=== PATIENT | male | born 1970 | race Caucasian/White ===

== ENCOUNTER 2017-05-24 17:01 | Emergency (ER) | payer SELFPAY ==
[2017-05-24 17:02] VITALS: BP 135/83; PULSE 70; RESP 20; TEMP 36.9; O2SAT 100; BMI 19.3
--- NOTE | 2017-05-24 17:29 | XR_ITS ---
XR chest portable COMPARISON: None HISTORY: Chest pain TECHNIQUE: Portable upright chest FINDINGS: The lung panda are well expanded and appear clear of infiltrate. There is minimal apical pleural-parenchymal scarring bilaterally more prominent right side the left. Cardiac size is normal and the vascularity is normal and there is no pleural fluid. IMPRESSION: Nonacute chest findings
[2017-05-24 17:45] LABS: Basophils % 0.1 % (0.1-2.0); Eosinophils # 0.1 K/mm3 (0.0-0.4); Eosinophils % 1.4 % (0.1-12.0); Hematocrit 47.4 % (42.0-52.0); Hemoglobin 15.6 g/dL (14.1-18.0); Lymphocytes # 1.5 K/mm3 (0.7-4.5); Lymphocytes % 28.4 K/mm3 (10-50); Mean Corpuscular HGB Conc 32.8 g/dL (31.8-35.4); Mean Corpuscular Hemoglobin 31.3 pg (27.0-31.2); Mean Corpuscular Volume 95.4 fl (80-94); Mean Platelet Volume 8.8 fl (7.4-10.4); Monocytes # 0.4 K/mm3 (0.1-1.0); Monocytes % 8.5 % (1.7-9.3); Neutrophils # 3.2 K/mm3 (1.8-7.8); Neutrophils % 61.6 % (37.0-80.0); Platelet Count 219 K/mm3 (142-424); Red Blood Count 4.97 M/mm3 (4.60-6.20); Red Cell Distribution Width 12.5 % (11.5-17.5); White Blood Count 5.2 K/mm3 (4.8-10.8)
[2017-05-24 18:13] LABS: Alanine Aminotransferase 25 U/L (12-78); Albumin Level 4.2 gm/dL (3.4-5.0); Albumin/Globulin Ratio 1.2 (1.1-1.8); Alkaline Phosphatase 81 U/L (46-116); Aspartate Amino Transferase 17 U/L (15-37); Bilirubin,Total 0.3 mg/dL (0.2-1.0); Blood Urea Nitrogen 22 mg/dL (7-18); Calcium 8.9 mg/dL (8.5-10.1); Carbon Dioxide 28 mmol/L (21.0-32.0); Chloride 104 mmol/L (98-107); Creatine Kinase 67 U/L (39-308); Creatinine Clearance Estimated 84 mL/min (0-300); Creatinine,Serum 1.11 mg/dL (0.70-1.30); Estimated Glomerular Filt Rate 72 ml/min (>60); GFR (African American) 87 ML/MIN (>60); Globulin 3.6 gm/dl (1.3-3.2); Glucose 96 mg/dL (74-106); Sodium 139 mmol/L (136-145); Total Protein,Serum 7.8 gm/dL (6.4-8.2); Troponin I < 0.02 ng/ml (0.00-0.06)
[2017-05-24 18:18] LABS: CKMB Relative Index 0.7 U/L (0-4.0); Creatine Kinase MB < 0.5 ng/ml (0.0-3.6)
--- NOTE | 2017-05-24 19:07 | HMH.EDARPALP ---
ED Disposition Clinical Impression: Palpitations Disposition: Home, Self-Care Condition on Discharge: Good Instructions: DI for Palpitations Additional Instructions: Please return the Holter monitor per instructions, after 48 hours, and subsequently follow-up with the building certifier, Dr. Len Philippe (in 4-5 days). Referrals: Ashwini Gómez MD [Primary Care Provider] - Kwabena Philippe MD [Staff Physician] - Time of Disposition: 19:08 - Critical Care Critical Care Time: No Attestation: On 05/24/17, the high probability of a clinically significant, sudden or life threatening deterioration of the following system(s) required my full and direct attention, intervention and personal management. The time I documented below is in addition to time spent performing reported procedures but includes the following listed in this critical care notation. Medical Decision Making - Medical Records Medical records reviewed: Yes: I reviewed the patient's medical records. - Max Inquiry Pt receiving controlled substance: No Vital Signs: 05/24/17 17:02 05/24/17 19:42 Temperature 98.4 F 98.1 F Temperature Source Oral Pulse Rate 82 Pulse Rate [Right Radial] 70 Respiratory Rate 20 16 Blood Pressure 145/87 Blood Pressure [Right Arm] 135/83 Blood Pressure Mean [Right Arm] 100 Blood Pressure Source Automatic Cuff Blood Pressure Source [Right Arm] Automatic Cuff Blood Pressure Position Sitting Blood Pressure Position [Right Arm] Sitting 02 Sat by Pulse Oximetry 100 Oxygen Delivery Method Room Air Room Air - Lab Data Lab results reviewed: Yes: I reviewed the patient's lab results. Lab Results 05/24/17 17:20: WBC 5.2, RBC 4.97, Hgb 15.6, Hct 47.4, MCV 95.4 H, MCH 31.3 H, MCHC 32.8, RDW 12.5, Plt Count 219, MPV 8.8, Neut % (Auto) 61.6, Lymph % (Auto) 28.4, [place] % (Auto) 8.5, Eos % (Auto) 1.4, Baso % (Auto) 0.1, Neut # (Auto) 3.2, Lymph # (Auto) 1.5, [place] # (Auto) 0.4, Eos # (Auto) 0.1, Baso # (Auto) 0.0 05/24/17 17:20: Sodium 139, Potassium 4.0, Chloride 104, Carbon Dioxide 28, Anion Gap 11.0, BUN 22 H, Creatinine 1.11, Estimated Creat Clear 84, Estimated GFR 72, Est GFR ( Amer) 87, Glucose 96, Calcium 8.9, Total Bilirubin 0.3, AST 17, ALT 25, Alkaline Phosphatase 81, Total Creatine Kinase 67, CK-MB (CK-2) < 0.5, CK-MB (CK-2) Rel Index 0.7, Troponin I < 0.02, Total Protein 7.8, Albumin 4.2, Globulin 3.6 H, Albumin/Globulin Ratio 1.2 Result diagrams: 05/24/17 17:20 05/24/17 17:20 Orders (Tests/Meds): ORDERS Category Date Time Status 12-lead EKG Request [ECG Request by /Tasha] Stat Y 05/24/17 17:28 Stop Req Holter Monitor Req by Tasha/ Routine Y 05/24/17 19:03 Ordered - Radiology Data #1 Image(s): Chest Image Reviewed: Yes I reviewed the patient's radiology results, Yes I reviewed the patient's radiology image, Yes I have reviewed radiologist's interpretation Preliminary Findings: Normal/NAD - ECG Data Tracing #1 I reviewed this ECG and interpreted as documented below: ECG normal with no acute: arrhythmias, ischemia, conduction abnormalities, chamber hypertrophy Normal Sinus Rhythm: Yes - Reevaluation(s) Time: 19:05 Reevaluation #1: Patient's equipment monitor phototypesetting remained in normal sinus rhythm for the duration of his ER evaluation. He is medically stable, no acute distress, voicing no complaints. Patient will be discharged home with a 48 hours Holter monitor, and he will be instructed to follow-up with a building certifier, Dr. Philippe, within the next few days, per discharge instructions. Arrhythmia/Palpitations HPI - General Chief Complaint: Arrhythmia/Palpitations Stated Complaint: Heart Fluttering Time Seen by Provider: 05/24/17 18:20 Mode of Arrival: Ambulatory Source of Information: Patient, Relative Limitations: No Limitations - History of Present Illness HPI narrative: Patient is a lab director, who presents here with palpitations, off-and-on, for the past 24
[2017-05-24 19:42] VITALS: BP 145/87; PULSE 82; RESP 16; TEMP 36.7; O2SAT 98
== END 2017-05-24 19:33 | disposition home or self-care (01) ==
PROVIDERS: Emergency Provider Emergency Medicine; Family Provider Nurse Practitioner Family; PCP Family Medicine
DX: R00.2 Palpitations (principal); F17.210 Nicotine dependence, cigarettes, uncomplicated
CPT/HCPCS: 71045; 80053; 82550; 82553; 84484; 85025; 93005; 93225; 93226; 99283

== ENCOUNTER → 2017-12-17 14:54 | Outpatient (CLI) | payer SELFPAY ==
--- NOTE | 2017-12-17 14:57 | CA_ITS ---
PROCEDURE: 2-D M-mode and color Doppler study INDICATIONS FOR THE TEST: Chest pain COPD Heart Murmur Tobacco Smoking+ Palpitations+ Fatigue Syncope Edema+ Hypertension Diabetes Mellitus Rheumatic Fever SOB [place] Obesity Hyperlipidemia Family History HD Additional History abn ekg PATIENT INFORMATION HEIGHT: 71 WEIGHT:155 GENDER: Male B/P:138/84 2-D/M-MODE INTERPRETATION: 2-D MEASUREMENTS OBSERVED VALUES IN CMS Right Ventricular Dimension (RVDd) 1.5 Interventricular Septum (Thickness)(IVsd) 0.6 Left Ventricular Internal Dimensions(LVIDd) 5.1 Left Ventricular Posterior Wall (Thickness)(LVPWd) 0.6 Aortic Root 2.5 Aortic Cusp Separation 1.1 Left Atrial Dimensions (LAD) 2.1 2D 1. Left atrium is normal size, left ventricle is normal size, there is no concentric left ventricular hypertrophy, visually estimated ejection fraction of 55% with no regional wall motion abnormality. 2. The right atrium and right ventricle are normal size and contractility. 3. The aortic, mitral and tricuspid valvular grossly normal. 4. The pulmonic valve is poorly visualized. 5. No significant pericardial effusion noted. DOPPLER INTERROGATION: Doppler interrogation of the aortic, mitral and tricuspid valvular presence of trace mitral and tricuspid regurgitation of no hemodynamic significance, diastolic parameters are within normal range. CONCLUSION: 1. Normal left ventricular size, preserved left ventricular systolic function, visually estimated ejection fraction 55% with no regional wall motion abnormality, diastolic parameters are within normal range. 2. Trace mitral and tricuspid regurgitation 3. No significant pericardial effusion noted.
== END ==
PROVIDERS: PCP Family Medicine; Visit Provider Internal Medicine
DX: R00.2 Palpitations (principal); F17.200 Nicotine dependence, unspecified, uncomplicated; R20.0 Anesthesia of skin; R20.2 Paresthesia of skin; R94.31 Abnormal electrocardiogram [ECG] [EKG]
CPT/HCPCS: 93306

== ENCOUNTER → 2019-05-25 14:24 | Outpatient (CLI) | payer OTHER, SELFPAY ==
--- NOTE | 2019-05-25 14:28 | XR_ITS ---
PROCEDURE: XR CERVICAL SPINE 5V CLINICAL INDICATION: CERVICALGIA, LT ARM NUMBNESS COMPARISON: CS5 CERVICAL SPINE 4 OR 5 VIEWS from 04/02/2015 FINDINGS: There is degenerative disc disease at C6-7 with loss of disc space height and anterior marginal spurring unchanged over the interval. Neural foramina are patent. No acute fracture or dislocation is apparent. There are subpleural blebs and scarring in both lung apices right greater than left. IMPRESSION: Degenerative disc disease C6-7 Dictated by: Marv Elder 05/25/2019 15:43 Electronically signed by Marv Elder in [place] 05/25/2019 15:43
== END ==
PROVIDERS: PCP Nurse Practitioner Family; Visit Provider Nurse Practitioner Family
DX: M54.2 Cervicalgia (principal); R00.2 Palpitations
CPT/HCPCS: 72050

== ENCOUNTER → 2019-06-05 15:13 | Outpatient (CLI) | payer OTHER, SELFPAY ==
--- NOTE | 2019-06-05 15:16 | XR_ITS ---
PROCEDURE: XR CHEST 2V CLINICAL HISTORY: ABNORMAL X-RAY Smoker, follow-up abnormal radiograph COMPARISON: CXR1VP XR chest portable from 06/03/2017 CXR2V XR chest 2V from 06/04/2017 XR CHEST 2V from 05/22/2019 FINDINGS: The cardiomediastinal silhouette and pulmonary vascularity are within normal limits. There are biapical blebs with some pleural parenchymal scarring in the lung apices not significantly changed. No evidence of pneumothorax. No acute bony abnormalities. IMPRESSION: Biapical blebs. No change with no acute finding. Dictated by: Noam Calderón MD 06/05/2019 15:47 Electronically signed by Noam Calderón MD in [place] 06/05/2019 15:47
== END ==
PROVIDERS: PCP Nurse Practitioner Family; Visit Provider Nurse Practitioner Family
DX: R93.89 Abnormal findings on diagnostic imaging of other specified body structures (principal)
CPT/HCPCS: 71046

== ENCOUNTER 2019-07-12 05:43 | Emergency (ER) | payer OTHER, SELFPAY ==
[2019-07-12 05:52] VITALS: BP 145/87; PULSE 77; RESP 16; TEMP 36.4; O2SAT 99; BMI 19.9
--- NOTE | 2019-07-12 06:02 | XR_ITS ---
PROCEDURE: XR CHEST 2V CLINICAL HISTORY: strain in chest Chest pain, aching and chills COMPARISON: CXR2V XR chest 2V from 06/04/2017 XR CHEST 2V from 05/22/2019 XR CHEST 2V from 06/05/2019 FINDINGS: The cardiomediastinal silhouette and pulmonary vascularity are within normal limits. Biapical blebs are present as before. The lungs are otherwise clear. No acute bony abnormalities. IMPRESSION: No change with no acute finding. Biapical blebs Dictated by: Noam Calderón MD 07/12/2019 06:51 Electronically signed by Noam Calderón MD in [facility] 07/12/2019 06:51
--- NOTE | 2019-07-12 06:08 | ECG_ITS ---
APPROVED REPORT Exam: Resting ECG HR:67 bpm ECG Measurements Heart Rate 67 AXES WA 156 P 75 QRSd 90 QRS -28 QT 394 T 65 QTc 416 <Conclusion> Normal sinus rhythm Normal ECG Electronically signed by : Sampson Valle, 07/13/2019 21:41:44
[2019-07-12 06:12] LABS: Basophils # 0.2 K/mm3 (0-0.2); Basophils % 2.8 % (0.1-2.0); Eosinophils # 0.2 K/mm3 (0.0-0.4); Eosinophils % 2.1 % (0.1-12.0); Hematocrit 48.5 % (42.0-52.0); Hemoglobin 15.4 g/dL (14.1-18.0); Lymphocytes % 25.6 % (10-50); Mean Corpuscular HGB Conc 31.8 g/dL (31.8-35.4); Mean Corpuscular Hemoglobin 30.9 pg (27.0-31.2); Mean Corpuscular Volume 97.2 fl (80-94); Mean Platelet Volume 9.2 fl (7.4-10.4); Monocytes # 0.8 K/mm3 (0.1-1.0); Monocytes % 10.3 % (1.7-9.3); Neutrophils # 4.6 K/mm3 (1.8-7.8); Neutrophils % 59.2 % (37.0-80.0); Platelet Count 216 K/mm3 (142-424); Red Blood Count 4.99 M/mm3 (4.60-6.20); Red Cell Distribution Width 13.3 % (11.5-17.5); White Blood Count 7.7 K/mm3 (4.8-10.8)
[2019-07-12 06:13] LABS: Chloride 103 mmol/L (98-107); Sodium 137 mmol/L (136-145)
[2019-07-12 06:16] LABS: Alanine Aminotransferase 23 U/L (12-78); Albumin Level 4.8 g/dl (3.5-5.0); Albumin/Globulin Ratio 1.4 (1.1-1.8); Alkaline Phosphatase 93 U/L (38-126); Amylase 80 U/L (30-110); Aspartate Amino Transferase 39 U/L (17-59); Bilirubin,Total 0.7 mg/dl (0.2-1.3); Blood Urea Nitrogen 24 mg/dl (9-20); Calcium 10.3 mg/dl (8.4-10.2); Carbon Dioxide 29 mmol/L (22.0-30.0); Creatinine Clearance Estimated 91 mL/min (50-200); Estimated Glomerular Filt Rate 80 ml/min (>60); GFR (African American) 97 ML/MIN (>60); Globulin 3.4 g/dL (1.3-3.2); Glucose 112 mg/dl (74-100); Total Protein,Serum 8.2 g/dl (6.3-8.2)
[2019-07-12 06:17] LABS: Lipase 86 U/L (23-300)
[2019-07-12 06:18] LABS: Microscopic, Urine URINE MICROSCOPIC (MICROSCOPIC)
[2019-07-12 06:19] LABS: Strep Scrn Group A (Rapid) Negative (Negative)
[2019-07-12 06:20] LABS: Appearance,Urine CLEAR (Clear); Bilirubin,Urine Negative (Negative); Blood, Urine Negative (Negative); Color,Urine YELLOW (Yellow); Glucose,Urine (UA) Negative (Negative); Ketones,Urine Negative (Negative); Leukocyte Esterase,Urine Negative (Negative); Nitrate,Urine Negative (Negative); Protein,Urine Negative (Negative); Urobilinogen,Urine 0.2 EU/dl (0.2)
[2019-07-12 06:29] LABS: Troponin I < 0.01 ng/ml (0.00-0.034)
[2019-07-12 06:31] LABS: Squamous Epithelial Cell,Urine Occasional #/hpf (0-5); WBC,Urine Occasional #/hpf (0-3)
--- NOTE | 2019-07-12 06:39 | HMH.EDNVD ---
ED Disposition Clinical Impression: Vomiting Qualifiers: Vomiting type: unspecified Vomiting Intractability: unspecified Nausea presence: with nausea Qualified Code(s): R11.2 - Nausea with vomiting, unspecified Disposition: Home, Self-Care Condition on Discharge: Good Instructions: DI for Nausea -- Adult Additional Instructions: fluids and call pcp for follow up Prescriptions: ondansetron HCL [Zofran 4mg Tab] 4 mg PO QID #20 tab Transmission Status: Pending to [id number] Referrals: Ashwini Gómez MD [Primary Care Provider] - - Critical Care Critical Care Time: No Attestation: On 07/12/19, the high probability of a clinically significant, sudden or life threatening deterioration of the following system(s) required my full and direct attention, intervention and personal management. The time I documented below is in addition to time spent performing reported procedures but includes the following listed in this critical care notation. Medical Decision Making - Medical Records Medical records reviewed: Yes: I reviewed the patient's medical records. - Max Inquiry Pt receiving controlled substance: No Vital Signs: 07/12/19 05:52 Temperature 97.6 F Temperature Source Oral Pulse Rate [Right Brachial] 77 Respiratory Rate 16 Blood Pressure [Right Arm] 145/87 H Blood Pressure Mean [Right Arm] 106 Blood Pressure Source [Right Arm] Automatic Cuff Blood Pressure Position [Right Arm] Sitting 02 Sat by Pulse Oximetry 99 Oxygen Delivery Method Room Air - Lab Data Lab results reviewed: Yes: I reviewed the patient's lab results. Lab Results 07/12/19 06:00: WBC 7.7, RBC 4.99, Hgb 15.4, Hct 48.5, MCV 97.2 H, MCH 30.9, MCHC 31.8, RDW 13.3, Plt Count 216, MPV 9.2, Neut % (Auto) 59.2, Lymph % (Auto) 25.6, [place] % (Auto) 10.3 H, Eos % (Auto) 2.1, Baso % (Auto) 2.8 H, Neut # (Auto) 4.6, Lymph # (Auto) 2.0, [place] # (Auto) 0.8, Eos # (Auto) 0.2, Baso # (Auto) 0.2 07/12/19 06:00: Sodium 137, Potassium 4.0, Chloride 103, Carbon Dioxide 29, Anion Gap 9.0, BUN 24 H, Creatinine 1.00, Estimated Creat Clear 91, Estimated GFR 80, Est GFR ( Amer) 97, Glucose 112 H, Calcium 10.3 H, Total Bilirubin 0.7, AST 39, ALT 23, Alkaline Phosphatase 93, Total Protein 8.2, Albumin 4.8, Globulin 3.4 H, Albumin/Globulin Ratio 1.4, Amylase 80 07/12/19 06:00: Troponin I < 0.01, Lipase 86 07/12/19 06:03: Influenza Type A Ag Negative, Influenza Type B Ag Negative 07/12/19 06:03: Group A Strep Rapid Negative 07/12/19 06:13: Urine Color Yellow, Urine Appearance Clear, Urine pH 7.0, Ur Specific [place] 1.020, Urine Protein Negative, Urine Glucose (UA) Negative, Urine Ketones Negative, Urine Blood Negative, Urine Nitrate Negative, Urine Bilirubin Negative, Urine Urobilinogen 0.2, Ur Leukocyte Esterase Negative, Urine RBC 3-5, Urine WBC Occasional, Ur Squamous Epith Cells Occasional, Urine Bacteria None Result diagrams: 07/12/19 06:00 07/12/19 06:00 Orders (Tests/Meds): ED MEDICATIONS Generic Name Dose Route Start Last Admin Trade Name Freq PRN Reason Stop Dose Admin Sodium Chloride 1,000 mls @ 999 mls/hr 07/12/19 06:00 07/12/19 06:01 Sod Chlor 0.9% 1000ml Bag IV 07/12/19 07:00 999 mls/hr .Q1H1M KEVIN Administration Discontinued Medications Generic Name Dose Route Start Last Admin Trade Name Freq PRN Reason Stop Dose Admin Ondansetron HCl 4 mg 07/12/19 05:58 07/12/19 06:01 Zofran 4mg/2ml Vial IV 07/12/19 05:59 4 mg ONCE ONE Administration ORDERS Category Date Time Status XR chest 2V Stat Exams 07/12/19 06:02 Taken Troponin I Q3H Lab 07/12/19 09:15 Ordered Troponin I Q3H Lab 07/12/19 12:15 Ordered Strep Screen Confirmation Stat Micro 07/12/19 06:03 Received - Radiology Data #1 Image(s): Chest Image Reviewed: Yes I reviewed the patient's radiology image Preliminary Findings: Normal/NAD - ECG Data Tracing #1 Normal Sinus Rhythm: Yes Ischemic changes: non-specific ST-T wave jackie
[2019-07-12 06:50] VITALS: BP 145/87; PULSE 77; RESP 16; TEMP 36.4; O2SAT 99
== END 2019-07-12 06:55 | disposition home or self-care (01) ==
PROVIDERS: Emergency Provider Emergency Medicine; PCP Family Medicine
DX: R11.2 Nausea with vomiting, unspecified (principal); F17.210 Nicotine dependence, cigarettes, uncomplicated
CPT/HCPCS: 71046; 80053; 81001; 82150; 83690; 84484; 85025; 87275; 87276; 87430; 93005; 96365; 96375; 99284; J2405

== ENCOUNTER 2019-09-18 02:20 | Emergency (ER) | payer OTHER, SELFPAY ==
[2019-09-18] VITALS (8 sets, daily range): BP systolic 99–140; BP diastolic 58–82; PULSE 50–88; RESP 15–18; TEMP 36.5; O2SAT 96–99; BMI 22.5
--- NOTE | 2019-09-18 02:26 | ECG_ITS ---
APPROVED REPORT Exam: Resting ECG HR:75 bpm ECG Measurements Heart Rate 75 AXES MD 148 P 79 QRSd 90 QRS -46 QT 366 T 74 QTc 408 <Conclusion> Normal sinus rhythm Left anterior fascicular block Abnormal ECG Electronically signed by : Aakash Krishna, 09/18/2019 15:13:42
--- NOTE | 2019-09-18 02:27 | XR_ITS ---
PROCEDURE: XR CHEST 2V CLINICAL HISTORY: chest pain Left-sided chest pain radiating down left arm. Smoker. No history of surgeries or carcinoma. COMPARISON: 07/12/2019 and 06/05/2019. FINDINGS: The cardiomediastinal silhouette and pulmonary vascularity are within normal limits. The lungs are hyperinflated, compatible with COPD. There is biapical pleural parenchymal scarring. Lung panda are unremarkable for acute infiltrative or congestive changes. Bilateral perihilar chronic appearing mildly increased interstitial markings demonstrated more prominently in the basilar regions. Mediastinum and hilar soft tissues are unremarkable. No acute bony abnormalities. IMPRESSION: No acute findings. Stable appearing chest. COPD changes. Redemonstrated biapical pleural parenchymal thickening and scarring. Dictated by: Sangeeta Mendez 09/18/2019 08:46 Electronically signed by Sangeeta Mendez in [place] 09/18/2019 08:46
[2019-09-18 02:37] LABS: Basophils % 0.2 % (0.1-2.0); Eosinophils # 0.1 K/mm3 (0.0-0.4); Eosinophils % 1.4 % (0.1-12.0); Hematocrit 48.1 % (42.0-52.0); Hemoglobin 16.2 g/dL (14.1-18.0); Lymphocytes # 2.2 K/mm3 (0.7-4.5); Mean Corpuscular HGB Conc 33.8 g/dL (31.8-35.4); Mean Corpuscular Hemoglobin 31.9 pg (27.0-31.2); Mean Corpuscular Volume 94.5 fl (80-94); Mean Platelet Volume 9.2 fl (7.4-10.4); Monocytes # 0.6 K/mm3 (0.1-1.0); Monocytes % 6.8 % (1.7-9.3); Neutrophils # 6.1 K/mm3 (1.8-7.8); Neutrophils % 67.6 % (37.0-80.0); Platelet Count 210 K/mm3 (142-424); Red Blood Count 5.08 M/mm3 (4.60-6.20); Red Cell Distribution Width 13.4 % (11.5-17.5)
[2019-09-18 02:41] LABS: Anion Gap 13.9 mEq/L (5-15); Blood Urea Nitrogen 21 mg/dl (9-20); Calcium 10.5 mg/dl (8.4-10.2); Carbon Dioxide 31 mmol/L (22.0-30.0); Chloride 101 mmol/L (98-107); Creatinine Clearance Estimated 105 mL/min (50-200); Estimated Glomerular Filt Rate 80 ml/min (>60); GFR (African American) 97 ML/MIN (>60); Glucose 118 mg/dl (74-100); Potassium 3.9 mmoL/L (3.5-5.1); Sodium 142 mmol/L (136-145)
[2019-09-18 02:59] LABS: Troponin I < 0.01 ng/ml (0.00-0.034)
--- NOTE | 2019-09-18 03:10 | HMH.EDCP ---
ED Disposition Clinical Impression: Atypical chest pain Disposition: Home, Self-Care Condition on Discharge: Good Instructions: DI for Atypical Chest Pain Additional Instructions: see pcp and card for follow up Referrals: Suyapa Contreras APRN [Primary Care Provider] - - Critical Care Critical Care Time: No Attestation: On 09/18/19, the high probability of a clinically significant, sudden or life threatening deterioration of the following system(s) required my full and direct attention, intervention and personal management. The time I documented below is in addition to time spent performing reported procedures but includes the following listed in this critical care notation. Medical Decision Making - Medical Records Medical records reviewed: Yes: I reviewed the patient's medical records. - Max Inquiry Pt receiving controlled substance: No Vital Signs: 09/18/19 02:20 09/18/19 02:50 09/18/19 03:20 Temperature 97.7 F Temperature Source Oral Pulse Rate [Left Radial] 88 61 53 L Respiratory Rate 16 15 15 Blood Pressure [Right Arm] 140/82 103/58 L 99/59 L Blood Pressure Mean [Right Arm] 101 73 72 Blood Pressure Source [Right Arm] Automatic Cuff Automatic Cuff Blood Pressure Position [Right Arm] Sitting Sitting 02 Sat by Pulse Oximetry 96 97 96 Oxygen Delivery Method Room Air Room Air 09/18/19 03:54 09/18/19 04:30 09/18/19 05:00 Temperature Temperature Source Pulse Rate [Left Radial] 50 L 57 L 60 Respiratory Rate 15 16 18 Blood Pressure [Right Arm] 99/58 L 101/65 L 105/66 L Blood Pressure Mean [Right Arm] 71 77 79 Blood Pressure Source [Right Arm] Automatic Cuff Automatic Cuff Automatic Cuff Blood Pressure Position [Right Arm] Sitting Sitting Supine 02 Sat by Pulse Oximetry 97 96 96 Oxygen Delivery Method Room Air Room Air Room Air 09/18/19 05:30 Temperature Temperature Source Pulse Rate [Left Radial] 62 Respiratory Rate 17 Blood Pressure [Right Arm] 108/60 L Blood Pressure Mean [Right Arm] 76 Blood Pressure Source [Right Arm] Automatic Cuff Blood Pressure Position [Right Arm] Supine 02 Sat by Pulse Oximetry 98 Oxygen Delivery Method Room Air - Lab Data Lab results reviewed: Yes: I reviewed the patient's lab results. Lab Results 09/18/19 02:20: WBC 9.0, RBC 5.08, Hgb 16.2, Hct 48.1, MCV 94.5 H, MCH 31.9 H, MCHC 33.8, RDW 13.4, Plt Count 210, MPV 9.2, Neut % (Auto) 67.6, Lymph % (Auto) 24.0, [place] % (Auto) 6.8, Eos % (Auto) 1.4, Baso % (Auto) 0.2, Neut # (Auto) 6.1, Lymph # (Auto) 2.2, [place] # (Auto) 0.6, Eos # (Auto) 0.1, Baso # (Auto) 0.0 09/18/19 02:20: Sodium 142, Potassium 3.9, Chloride 101, Carbon Dioxide 31 H, Anion Gap 13.9, BUN 21 H, Creatinine 1.00, Estimated Creat Clear 105, Estimated GFR 80, Est GFR ( Amer) 97, Glucose 118 H, Calcium 10.5 H, Troponin I < 0.01 09/18/19 05:20: Troponin I < 0.01 Result diagrams: 09/18/19 02:20 09/18/19 02:20 Orders (Tests/Meds): ED MEDICATIONS Generic Name Dose Route Start Last Admin Trade Name Freq PRN Reason Stop Dose Admin Sodium Chloride 1,000 mls @ 999 mls/hr 09/18/19 02:30 09/18/19 02:28 Sod Chlor 0.9% 1000ml Bag IV 09/18/19 03:30 999 mls/hr .Q1H1M KEVIN Administration Sodium Chloride 8 ml 09/18/19 02:32 Sodium Chloride 0.9% 10ml Vial IV 10/18/19 02:31 NEEDED PRN dilute pepcid Discontinued Medications Generic Name Dose Route Start Last Admin Trade Name Freq PRN Reason Stop Dose Admin Aspirin 324 mg 09/18/19 02:26 09/18/19 02:29 Aspirin 81mg Chewable Tablet PO 09/18/19 02:27 324 mg ONCE ONE Administration Famotidine 20 mg 09/18/19 02:32 09/18/19 02:36 Pepcid 20mg/2ml Vial IV 09/18/19 02:33 20 mg ONCE ONE Administration Ketorolac Tromethamine 30 mg 09/18/19 02:26 09/18/19 02:29 Toradol 30mg/Ml Vial IV 09/18/19 02:27 30 mg ONCE ONE Administration Metoclopramide HCl 10 mg 09/18/19 02:32 09/18/19 02:36 Reglan 10mg/2ml Vial IVP 09/18/19 02
[2019-09-18 06:03] LABS: Troponin I < 0.01 ng/ml (0.00-0.034)
== END 2019-09-18 06:19 | disposition home or self-care (01) ==
PROVIDERS: Emergency Provider Emergency Medicine; PCP Nurse Practitioner Family
DX: R07.89 Other chest pain (principal); F17.210 Nicotine dependence, cigarettes, uncomplicated
CPT/HCPCS: 71046; 80048; 84484; 85025; 93005; 96365; 96374; 96375; 99284; J2405

== ENCOUNTER → 2019-10-02 14:59 | Outpatient (CLI) | payer OTHER, SELFPAY ==
--- NOTE | 2019-10-02 15:03 | MR_ITS ---
PROCEDURE: MR CERVICAL SPINE WO CON CLINICAL INDICATION: CERVICALGIA, LEFT ARM NUMBNESS LT SIDED NECK PAIN WITH NUMBNESS IN 4TH-5TH DIGITS. TINGLING AND NUMBNESS DOWN LT ARM. X6-8MONTHS. NO INJURY. PRIOR CT 08/11/2018 COMPARISON: CT SPCERVWO CT cervical spine wo con from 08/11/2018 TECHNIQUE: Standard multiplanar multiecho sequences are performed without contrast. 3-D MIP and myelographic images are also rendered and reviewed FINDINGS: The the craniocervical junction has an unremarkable appearance. C2-C3: Unremarkable. C3-C4: Unremarkable. C4-C5: Unremarkable. C5-C6: There is a small left paracentral/foraminal disc protrusion causing mild left lateral recess and foraminal narrowing. C6-C7: Degenerate disc disease with minimal bulging disc in very minimal central disc protrusion without impingement. C7-T1: Unremarkable. IMPRESSION: 1. C5-C6: There is a small left paracentral/foraminal disc protrusion causing mild left lateral recess and foraminal narrowing. 2. C6-C7: Degenerative disc disease with minimal bulging disc with very minimal central disc protrusion without impingement 3. No extruded herniated disc or canal stenosis Dictated b Noam Calderón MD 10/03/2019 11:57 Noam Calderón MD in [place] 10/03/2019 11:57
== END ==
PROVIDERS: PCP Nurse Practitioner Family; Visit Provider Nurse Practitioner Family
DX: M54.2 Cervicalgia (principal); R20.0 Anesthesia of skin
CPT/HCPCS: 72141; 76376

== ENCOUNTER → 2019-11-15 10:13 | Outpatient (CLI) | payer OTHER, SELFPAY ==
--- NOTE | 2019-11-15 10:29 | XR_ITS ---
PROCEDURE: XR ANKLE RT MIN 3V CLINICAL INDICATION: RT ANKLE AND JOINT PAIN COMPARISON: No exams were available for comparison FINDINGS: There is no soft tissue swelling. The medial and lateral malleolus appear intact. The ankle mortise is normal. IMPRESSION: No acute findings. Dictated by: Dr. Daryl Godinez MD 11/15/2019 10:45 Dr. Daryl Godinez MD in [place] 11/15/2019 10:45
== END ==
PROVIDERS: PCP Family Medicine; Visit Provider Family Medicine
DX: M25.571 Pain in right ankle and joints of right foot (principal)
CPT/HCPCS: 73610

== ENCOUNTER → 2020-01-04 13:29 | Outpatient (CLI) | payer OTHER, SELFPAY ==
--- NOTE | 2020-01-04 13:36 | XR_ITS ---
PROCEDURE: XR FOOT LT MIN 3V CLINICAL INDICATION: LT FOOT PAIN, SWELLING OF LT FOOT COMPARISON: CR FTL3 FOOT-LT-3 VIEWS from 02/03/2017 FINDINGS: No fracture or dislocation. No lytic or blastic change. There is normal mineralization. The joint spaces are well-preserved. No significant degenerative/arthritic changes. No erosive changes evident. Other findings:None. IMPRESSION: No acute findings. Dictated by: Noam Calderón MD 01/04/2020 14:00 Noam Calderón MD in [facility] 01/04/2020 14:00
== END ==
PROVIDERS: PCP Nurse Practitioner Family; Visit Provider Nurse Practitioner Family
DX: M79.672 Pain in left foot (principal); M79.89 Other specified soft tissue disorders
CPT/HCPCS: 73630

== ENCOUNTER → 2021-03-17 15:47 | Outpatient (CLI) | payer OTHER, SELFPAY | PROVIDERS: Visit Provider Nurse Practitioner | DX: Z20.822 Contact with and (suspected) exposure to COVID-19 (principal) | CPT/HCPCS: C9803; U0003; U0005 ==

== ENCOUNTER 2023-01-17 14:06 | Emergency (ER) | payer BC, SELFPAY ==
[2023-01-17] VITALS (9 sets, daily range): BP systolic 121–150; BP diastolic 65–79; PULSE 63–90; RESP 12–21; TEMP 36.6–36.7; O2SAT 96–97; BMI 20.9
--- NOTE | 2023-01-17 14:15 | PC.NURSE ---
PT PLACED IN GOWN AND C COLLAR
--- NOTE | 2023-01-17 14:50 | CT_ITS ---
PROCEDURE INFORMATION: Exam: CT Cervical Spine Without Contrast Exam date and time: 01/17/2023 3:07 PM Age: 52 years old Clinical indication: Injury or trauma; Fall; Blunt trauma; Additional info: Fall, axial load, midline pain TECHNIQUE: Imaging protocol: Computed tomography of the cervical spine without contrast. Radiation optimization: All CT scans at this facility use at least one of these dose optimization techniques: automated exposure control; mA and/or kV adjustment per patient size (includes targeted exams where dose is matched to clinical indication); or iterative reconstruction. REPORTING DATA: Count of CT and Cardiac NM exams in prior 12 months: This patient has received 0 known CTs and 0 known cardiac nuclear medicine studies in the 12 months prior to the current study. COMPARISON: MR CERVICAL SPINE WO CON 10/02/2019 3:10 PM FINDINGS: Bones/joints: Cervical spondylosis with changes of disc degeneration at C6-C7. Lungs: Lung apices are normal. Soft tissues: Unremarkable. IMPRESSION: No evidence of acute abnormality.
--- NOTE | 2023-01-17 14:51 | HMH.EDGENADL ---
Discharge Plan Disposition Patient Disposition: Home, Self-Care Prescriptions Prescriptions: New ibuprofen 600 mg tablet 600 mg PO Q8H PRN (Reason: pain) 7 Days Qty: 21 0RF cyclobenzaprine 5 mg tablet 5 mg PO TID PRN (Reason: muscle spasm) 5 Days Qty: 15 0RF No Action pantoprazole [Protonix] 40 mg tablet,delayed release (DR/EC) 40 mg PO DAILY multivitamin Tablet 1 tab PO DAILY Referrals Follow up/Referrals: Suyapa Contreras APRN [Primary Care Provider] - See instructions Clinical Impressions Clinical Impression: Cervical strain Discharge ED Provider: Valeriano Hernandez General Adult HPI <Valeriano Hernandez MD - Last Filed: 01/17/23 14:54> General Chief complaint: Fall Stated complaint: AO 01/15 landed on feet after falling 12' Time Seen by Provider: 01/17/23 14:30 Mode of Arrival: Ambulatory Source of Information: Patient Limitations: No Limitations Description of Symptoms (Recalled from ER Triage Doc. by RN): 52 yo M presents to ED c/o fall. pt reports he was climbing down out of tree stand wednesday night around sunset, he slipped with muddy boots and fell down landing on his feet. pt reports appox 12 feet. pt placed in coller, and pt placed in gown for assessment History of Present Illness HPI narrative: Patient is a 52-year-old with past medical history of previous C5/C6 fracture who presents emergency department for evaluation of traumatic injury sustained in a fall. Patient states that he was climbing out of a tree stand when he fell approximately 12 feet. When he realized he was falling he pushed himself away from the ladder and landed straight on his feet. He was wearing a heavy backpack at the time had resultant midline neck pain. Due to persistent pain he presents here for continued evaluation. Denies other traumatic injuries, chest pain, abdominal pain, extremity pain, low back pain. Related Data Home Medications Medication Instructions Recorded Confirmed multivitamin 1 tab PO DAILY . 02/20/19 02/19/20 pantoprazole 40 mg tablet,delayed 40 mg PO DAILY 02/19/20 02/19/20 release (Protonix) Previous Rx's Medication Instructions Recorded cyclobenzaprine 5 mg tablet 5 mg PO TID PRN muscle spasm 5 11/26/23 days #15 tabs ibuprofen 600 mg tablet 600 mg PO Q8H PRN pain 7 days #21 01/17/23 tabs Allergies Allergy/AdvReac Type Severity Reaction Status Date / Time prednisolone AdvReac Intermediate Vomiting Verified 02/19/20 10:51 PFSH <Valeriano Hernandez MD - Last Filed: 01/17/23 14:54> PFS Disclaimer: The information contained in this section may have been updated after the patient was seen, as this information can be updated by other users. Medical History (Updated 01/17/23 @ 17:18 by Yen Hanks MD) Abnormal EKG COPD (chronic obstructive pulmonary disease) Tobacco dependence syndrome Social History Smoking Status: Current every day smoker tobacco type: cigarettes packs per day: 1 second hand exposure: No alcohol intake: never substance use type: denies use current occupational status: employed Travel in the last 8 weeks: None housing: house current occupational exposures/hazards: No <Valeriano Hernandez MD - Last Filed: 01/17/23 14:54> ROS Obtained: Yes Systems reviewed as appropriate & no additional complaints except as documented Physical Exam <Valeriano Hernandez MD - Last Filed: 01/17/23 14:54> General General appearance: alert and in no apparent distress Head Head exam: atraumatic and normocephalic Eye Eye exam: Present PERRL and EOMI ENT ENT exam: Present mucous membranes moist Neck Neck exam: Present normal inspection and tenderness (Midline) Chest Chest inspection: Present normal inspection and symmetric chest wall rise Respiratory Respiratory exam: Present normal lung sounds bilaterally; Absent respiratory distress Cardiovascular Cardiovascular exam: Present regular rate and normal rhythm Abdominal Exam Abdominal exa
--- NOTE | 2023-01-17 17:03 | PC.NURSE ---
Janeth Luque rounded on pt, updated him we are waiting on scan results.
== END 2023-01-17 18:18 | disposition home or self-care (01) ==
PROVIDERS: Emergency Provider Emergency Medicine; PCP Nurse Practitioner Family
DX: S16.1XXA Strain of muscle, fascia and tendon at neck level, initial encounter (principal); F17.210 Nicotine dependence, cigarettes, uncomplicated; J44.9 Chronic obstructive pulmonary disease, unspecified; W14.XXXA Fall from tree, initial encounter
CPT/HCPCS: 72125; 99284

== ENCOUNTER 2024-06-20 15:09 | Outpatient (CLI) | payer BC, SELFPAY ==
[2024-06-20 15:15] LABS: Basophils % 0.1 % (0.1-2.0); Eosinophils # 0.1 Kmm3 (0.0-0.4); Hematocrit 46.5 % (42.0-52.0); Hemoglobin 15.7 g/dL (14.1-18.0); Lymphocytes # 1.3 K/mm3 (0.7-4.5); Lymphocytes % 10.4 % (10-50); Mean Corpuscular HGB Conc 33.8 g/dL (31.8-35.4); Mean Corpuscular Hemoglobin 31.2 pg (27.0-31.2); Mean Corpuscular Volume 92.4 fl (80-94); Mean Platelet Volume 11.9 fl (7.4-10.4); Monocytes # 1.6 K/mm3 (0.1-1.0); Neutrophils # 9.9 K/mm3 (1.8-7.8); Neutrophils % 76.2 % (37.0-80.0); Nucleated Red Blood Cells # 0 10^3/uL; Nucleated Red Blood Cells % 0 %; Platelet Count 238 K/mm3 (142-424); Red Blood Count 5.03 M/mm3 (4.60-6.20); Red Cell Distribution Width 13.2 % (11.5-17.5); Red Cell Distribution Width-SD 44.8 fL; White Blood Count 12.9 K/mm3 (4.8-10.8)
[2024-06-20 15:19] LABS: MANUAL DIFFERENTIAL MANUAL DIFFERENTIAL (MANUAL DIFF)
[2024-06-20 15:29] LABS: Erythrocyte Sedimentation Rate 20 mm/hr (0-20)
[2024-06-20 15:42] LABS: Alanine Aminotransferase 24 U/L (12-78); Albumin Level 4.1 g/dl (3.5-5.0); Albumin/Globulin Ratio 1.4 (1.1-1.8); Alkaline Phosphatase 91 U/L (38-126); Anion Gap 7.8 mEq/L (5-15); Aspartate Amino Transferase 31 U/L (17-59); Bilirubin,Total 0.7 mg/dl (0.2-1.3); Blood Urea Nitrogen 21 mg/dl (9-20); Calcium 9.3 mg/dl (8.4-10.2); Carbon Dioxide 24 mmol/L (22.0-30.0); Chloride 109 mmol/L (98-107); Estimated Glomerular Filt Rate 70 ml/min (>60); GFR (African American) 85 ML/MIN (>60); Glucose 82 mg/dl (74-100); Potassium 4.8 mmoL/L (3.5-5.1); Sodium 136 mmol/L (136-145); Total Protein,Serum 7.1 g/dl (6.3-8.2)
[2024-06-20 17:04] LABS: Lymphocytes % 13 % (10-50); Monocytes % 14 % (2-9); Neutrophils % 73 % (42-76); Total Cells Counted 100
[2024-06-20 17:07] LABS: RBC Morphology Normal
[2024-06-20 17:12] LABS: Platelet Estimate Normal
== END 2024-06-20 23:59 | disposition home or self-care (01) ==
LOC: LAB.DROPOF 15:10
PROVIDERS: PCP Nurse Practitioner Family; Visit Provider Nurse Practitioner Family
DX: R22.0 Localized swelling, mass and lump, head (principal); R50.9 Fever, unspecified
CPT/HCPCS: 80053; 85007; 85025; 85651

== ENCOUNTER 2024-06-22 12:46 | Outpatient (CLI) | payer BC, SELFPAY ==
--- NOTE | 2024-06-22 13:00 | CT_ITS ---
FINAL REPORT CLINICAL HISTORY: fever right jaw swelling FINDINGS: The paranasal sinuses are well aerated. There is no fracture. There are no air-fluid levels. No tissue inflammation is seen. There is no evidence of bony erosion. IMPRESSION: Unremarkable. Reviewed, Interpreted and Dictated by Damien Staples MD Transcribed by Soheila Linares Authenticated and [facility]
== END 2024-06-22 23:59 | disposition home or self-care (01) ==
LOC: RAD 12:47
PROVIDERS: PCP Nurse Practitioner Family; Visit Provider Nurse Practitioner Family
DX: R22.0 Localized swelling, mass and lump, head (principal)
CPT/HCPCS: 70486